=== PATIENT | female | born 1940 | race Caucasian/White ===

== ENCOUNTER 2016-06-21 18:08 | Emergency (ER) | payer MEDICARE ==
[~2016-06-21] VITALS: Ht 152.4 cm; Wt 54.4 kg
[~2016-06-21 18:08] MED LIST: ASPI81TA2 PO; CA C1TAB63 PO; CHOL100013 PO; CYAN500T PO; DOCU100C5 PO; ESTR0.5T PO; HYDR25TA PO; LORA10CA PO; MULT1TAB49 PO; UBID30CA6 PO
--- NOTE | 2016-06-21 18:45 | PHYS DOC ---
Adult General Chief Complaint Chief Complaint: FOOT INJURY PAIN [facility] HPI Patient is a 75 year old female who presents emergency room with a complaint of persistent right foot pain with intermittent swelling that began approximately one week ago. Patient states that she stepped off an uneven surface on her deck causing her to land awkwardly on the right foot. She denies any previous injuries to her right foot. She did break her right great toe when she was younger. She denies any history of bone forming disorders. Patient denies any additional injuries or concerns at this time. Review of Systems Review of Systems Constitutional: Denies fever or chills [] Eyes: Denies change in visual acuity, redness, or eye pain [] HENT: Denies nasal congestion or sore throat [] Respiratory: Denies cough or shortness of breath [] Cardiovascular: No additional information not addressed in HPI [] GI: Denies abdominal pain, nausea, vomiting, bloody stools or diarrhea [] : Denies dysuria or hematuria [] Musculoskeletal: Denies back pain or joint pain [] Integument: Denies rash or skin lesions [] Neurologic: Denies headache, focal weakness or sensory changes [] Endocrine: Denies polyuria or polydipsia [] Allergies Allergies Allergies Coded Allergies Type Severity Reaction Last Updated Verified cephalexin Allergy Intermediate Swelling 03/12/15 Yes cetirizine Allergy Intermediate Rash 03/12/15 Yes paroxetine Allergy Intermediate Hives 03/12/15 Yes propoxyphene Allergy Intermediate Hives 03/12/15 Yes Physical Exam Physical Exam Constitutional: Well developed, well nourished, no acute distress, non-toxic appearance. [] HENT: Normocephalic, atraumatic, bilateral external ears normal, oropharynx moist, no oral exudates, nose normal. [] Eyes: PERRLA, EOMI, conjunctiva normal, no discharge. [] Neck: Normal range of motion, no tenderness, supple, no stridor. [] Cardiovascular:Heart rate regular rhythm, no murmur [] Lungs & Thorax: Bilateral breath sounds clear to auscultation [] Abdomen: Bowel sounds normal, soft, no tenderness, no masses, no pulsatile masses. [] Skin: Warm, dry, no erythema, no rash. [] Back: No tenderness, no CVA tenderness. [] Extremities: Right knee is normal in appearance and nontender palpation. Right ankle is normal in appearance and nontender palpation. Right foot with moderate swelling to the dorsum of the foot. There is tenderness to palpation at the third, fourth and fifth metatarsals. There is no palpable defect, deformity, instability or crepitus. Patient is able to plantar and dorsiflex without difficulty. Patient's toes are normal in appearance and nontender palpation. Cap refills less than 2 seconds in all 5 toes. Neurologic: Alert and oriented X 3, normal motor function, normal sensory function, no focal deficits noted. [] Psychologic: Affect normal, judgement normal, mood normal. [] Current Patient Data Vital Signs Vital Signs Date Time Temp Pulse Resp B/P Pulse Ox O2 Delivery O2 Flow Rate FiO2 06/21/16 18:59 94 16 94 Room Air EKG EKG [] Radiology/Procedures Radiology/Procedures 3 views patient's right ankle and 3 views of patient's right foot were performed with adequate technique and reviewed by Dr. Conrad and myself. There is no evidence of acute bony injury to either ankle or foot. Patient's ankle and foot were wrapped with Werner wrap and she was placed in a postop shoe. Patient tolerated this well. Course & Med Decision Making Course & Med Decision Making Pertinent Labs and Imaging studies reviewed. (See chart for details) [] Dragon Disclaimer Dragon Disclaimer This electronic medical record was generated, in whole or in part, using a voice recognition dictation system. Departure Departure Impression: Primary Impression: Right foot sprain Disposition: HOME, SELF-CARE Condition: GOOD Referrals: PATRICIA JAIME MD (PCP) Patient Instructions: Foot Sprain-Brief, Podiatric Shoe Additional Instructions: 1. The x-rays of your foot and ankle today show no evidence of broken bone or dislocation. 2. Remember to keep your foot elevated as much as possible to help reduce the swelling. Wear the Werner wrap and podiatry shoe when you are moving about/bearing weight. 3. You can take an [id number] anti-inflammatory such as naproxen every 12 hours for ibuprofen every 8 hours. 4. Contact your primary care doctor's office Wednesday morning to schedule follow- up appointment for reevaluation within 7-10 days. LILLIAN LYMAN Jun 21, 2016 18:45
[2016-06-21 18:59] VITALS: BP 134/61
--- NOTE | 2016-06-22 07:46 | RAD ---
EXAM: 1. Right ankle 3 views. 2. Right foot 3 views. HISTORY: Right foot and ankle pain after injury COMPARISON: None. FINDINGS: No fractures are identified at the ankle. There is soft tissue swelling medially and laterally. Alignment is normal. Joint spaces are maintained. There is some soft tissue density in Kager's fat pad. Osteopenia is at least mild. No fractures are identified in the right foot. Joint spaces and alignment are maintained for patient age. There is a small plantar calcaneal spur. IMPRESSION: 1. No fracture. Soft tissue swelling. 2. Soft tissue density in Kager's fat pad. Correlate for a soft tissue contusion or a friction syndrome.
== END 2016-06-21 20:01 | disposition home or self-care (01) ==
LOC: ER 18:08
DX: S93.601A Unspecified sprain of right foot, initial encounter (principal); Z88.1 Allergy status to other antibiotic agents; Z88.8 Allergy status to other drugs, medicaments and biological substances; X58.XXXA Exposure to other specified factors, initial encounter; Y93.89 Activity, other specified; Y92.89 Other specified places as the place of occurrence of the external cause; Y99.8 Other external cause status
CPT/HCPCS: 73610; 73630; 99284

== ENCOUNTER → 2020-10-09 | Outpatient (CLI) | payer BC ==
[~2020-10-09] MED LIST changes: +ASPI-630 PO; -ASPI81TA2 PO; -CYAN500T PO; +CYAN500T7 PO; +DOCU100C28 PO; -DOCU100C5 PO; -MULT1TAB49 PO; +MULT1TAB50 PO; +UBID30CA15 PO; -UBID30CA6 PO
[2020-10-09 15:04] LABS: ALBUMIN 3.7 g/dL (3.4-5.0); CALCIUM 9.3 mg/dL (8.5-10.1); CREATININE 1.1 mg/dL (0.6-1.0); DIRECT BILIRUBIN 0.1 mg/dL (0.0-0.2); GFR 47.8; POTASSIUM 4.1 mmol/L (3.5-5.1); TOTAL BILIRUBIN 0.3 mg/dL (0.2-1.0); TOTAL PROTEIN 7.1 g/dL (6.4-8.2)
[2020-10-09 15:06] LABS: CHOLESTEROL/HDL RATIO 2.7
== END ==
LOC: LAB 14:00
PROVIDERS: ATTEND Internal Medicine Cardiovascular Disease
DX: I10 Essential (primary) hypertension (principal); E78.5 Hyperlipidemia, unspecified
CPT/HCPCS: 36415; 80048; 80061; 80076